=== PATIENT | male | born 1940 | race Caucasian/White ===

== ENCOUNTER 2024-01-08 15:52 | Outpatient (CLI) | payer MEDICARE | END 2024-01-08 15:53 | disposition short-term general hospital (02) | LOC: EMS 15:52 | DX: R29.898 Other symptoms and signs involving the musculoskeletal system (principal); M79.644 Pain in right finger(s); V18.0XXA Pedal cycle driver injured in noncollision transport accident in nontraffic accident, initial encounter; Y92.414 Local residential or business street as the place of occurrence of the external cause; Y93.55 Activity, bike riding | CPT/HCPCS: A0425; A0427 ==